=== PATIENT | female | born 1955 | race Caucasian/White ===

== ENCOUNTER 2023-07-10 12:25 | Day surgery (SDC) | payer MEDICARE, OTHER, SELFPAY ==
[2023-07-05 10:54] VITALS: BMI 35.6
--- NOTE | 2023-07-10 | PATH_ITS ---
[facility] Accession Number: [id number] No. of containers..01 Tissue . 01 Material submitted: . uterus - UTERINE MASS . 01 Diagnosis: Endometrium, Curettage: Endometrial polyp fragments. Negative for atypical hyperplasia and malignancy. MRV 07/18/2023 1626 Local . 01 Electronically signed: . Jenna Escobar MD, Pathologist NPI- [id number] . 01 Gross description: . UTERINE MASS: Received in formalin are multiple fragment of joyce soft tissue measuring 5.0 x 5.0 x 0.5 cm in aggregate. Specimen is submitted in its entirety in 4 cassettes. /CHENG 07/11/2023 1944 Local . 01 Pathologist provided ICD-10: N84.0 . 01 CPT . 487365 Specimen Comment: A courtesy copy of this report has been sent to [facility] Pathology Performed at: 01 [facility] [address] [place] [address], [place], [place] [id number] MD Roque Duran MD Phone: [phone]
[2023-07-10] MEDS: LACTATED RINGERS 1,000 ML 42 ML IV (12:44)
[2023-07-10 13:05] VITALS: BP 131/82; PULSE 88; RESP 17; TEMP 37.1; O2SAT 97; BMI 35.6
--- NOTE | 2023-07-10 13:21 | PM.PREOP ---
Pre-operative Note Interval Note History & Physical reviewed/Exam performed by Physician: Yes Changes to H&P: No H&P completed within 30 days and has changed as indicated here:: see office note 07/03/23 No changes to her medical/surgical history, no new medications. Plan to proceed with diagnostic hysteroscopy, possible polypectomy, possible dilation and curettage.
[2023-07-10] MEDS: ACETAMINOPHEN IV 1,000 MG/100 ML VIAL 400 MG IV (14:01)
--- NOTE | 2023-07-10 14:08 | SUR.OPER ---
Lithotomy on padded OR bed, head on pillow, arms secured on padded arm boards at <90 degrees abduction. Legs secured in padded yellow fins stirrups.
[2023-07-10] MEDS: LIDOCAINE 1% 20 ML INJ (14:12)
[2023-07-10 14:39] VITALS: BP 114/62; PULSE 81; RESP 17; TEMP 36.6; O2SAT 94
[2023-07-10 14:45] VITALS: BP 119/61; PULSE 83; RESP 10; O2SAT 97
[2023-07-10 14:49] VITALS: BP 116/55; PULSE 81; RESP 11; O2SAT 99
[2023-07-10] MEDS: OXYCODONE IR 5 MG TABLET PO (14:52)
--- NOTE | 2023-07-10 14:52 | P.OP_ITS ---
Operative Date/Time/Diagnoses Date of procedure: 07/10/23 Time of procedure: 13:30 Pre-op diagnosis: Postmenopausal bleeding Post-op diagnosis: other (Endometrial mass) Procedure & Clinicians Procedure: Diagnostic hysteroscopy Hysteroscopic myomectomy Same procedure as scheduled: Yes Indications: Postmenopausal bleeding Surgeon: Laurel Maloney Click Yes if Unassisted: Yes Anesthesia Type: General Operative Notes Findings: Large pedunculated intrauterine mass with polypoid and fibrous features Specimen(s): other (uterine mass) Estimated Blood Loss (mL): 10 Blood products transfused: none Procedure in detail: The risks, benefits, indications and alternatives of the procedure were reviewed with the patient and informed consent was obtained. The pt was taken to the operating room where general anesthesia with LMA was obtained without difficulty. The pt was then placed in the low lithotomy position using gel- padded Roger stirrups. Sequential compression devices were placed bilaterally for VTE prophylaxis. The pt was then prepped and draped in the sterile fashion. A sterile speculum was placed in the patient?s vagina and the cervix was visualized. A single tooth tenaculum was used to grasp the anterior lip of the cervix. A paracervical block was then performed using appoximately 10cc of 1% Lidocaine without epinephrine. The operative hysteroscope was first primed and pressure set. The operative hysteroscope was then advanced through the endocervical canal under direct visualization. The uterus was distended with warm saline, and the above findings were noted. Decision was made to proceed with the Myosure reach for removal of what appeared to be a polyp. After several minutes of resection however, the mass was noted to be more fibrous in nature, thus decision was made to switch to the Myosure XL. The pedunculated mass was then resected, and normal endometrial anatomy was restored. The operative hysteroscope was then removed under direct visualization. Tissue obtained was sent to pathology for review. The single tooth tenaculum was removed from the anterior lip of the cervix. The tenaculum site was noted to be hemostatic after direct pressure was applied. All instruments were then removed from the patient?s vagina. Hysteroscopic fluid deficit was 645cc of normal saline. The patient tolerated the procedure well. At the completion of the case the sponge and needle counts were correct x 2. The patient was taken to the PACU in stable condition. Complications: none Post-operative Condition: stable Disposition: PACU Plan for aftercare: Discharge to home once patient is meeting all discharge criteria.
[2023-07-10 14:53] VITALS: BP 126/69; PULSE 85; RESP 16; O2SAT 97
[2023-07-10 14:59] VITALS: BP 125/65; PULSE 80; RESP 15; TEMP 36.3; O2SAT 97
== END 2023-07-10 15:23 | disposition home or self-care (01) ==
PROVIDERS: PCP Internal Medicine; Referring Provider Student in an Organized Health Care Education/Training Program; Visit Provider Student in an Organized Health Care Education/Training Program
PROC: 0UDB8ZZ Extraction of Endometrium, Via Natural or Artificial Opening Endoscopic (ICD-10-PCS; CPT 58558; principal; 2023-07-10 13:30)
DX: N84.0 Polyp of corpus uteri (principal); N95.0 Postmenopausal bleeding
CPT/HCPCS: 58558; J0131; J1100; J1885; J2250; J2405; J2704; J3010

== ENCOUNTER → 2025-07-12 16:01 | Outpatient (CLI) | payer MEDICARE, OTHER, SELFPAY ==
--- NOTE | 2025-07-12 16:03 | DI.RAD.S_ITS ---
PROCEDURE: XR FOOT RT MIN 3V INDICATIONS: fell 1 week ago, pain top of foot TECHNIQUE: 3 views of the foot were acquired. COMPARISON: None. FINDINGS: Bones: 8 mm calcified fragment along the dorsal aspect of the talus only seen on the oblique view. Soft tissues: No tibiotalar joint effusion. Achilles tendon appears normal. IMPRESSION: Osseous fragments along the distal talus with unclear donor site. Recommend CT Dictated by: David Cheek M.D. on 07/12/2025 at 16:05 Approved by: David Cheek M.D. on 07/12/2025 at 16:12
== END ==
PROVIDERS: PCP Internal Medicine; Referring Provider Physician Assistant; Visit Provider Physician Assistant
DX: S99.921A Unspecified injury of right foot, initial encounter (principal); W19.XXXA Unspecified fall, initial encounter
CPT/HCPCS: 73630

== ENCOUNTER → 2025-07-14 14:16 | Outpatient (CLI) | payer MEDICARE, OTHER, SELFPAY ==
--- NOTE | 2025-07-14 14:19 | DI.CT.S_ITS ---
PROCEDURE: CT FOOT RIGHT WITHOUT CON INDICATIONS: abnormal xray TECHNIQUE: Noncontrast 1-1.5 mm axial sections acquired from above the tibiotalar joint to the bottom of the calcaneus, with coronal and sagittal reformats. Dose reduction techniques were utilized. COMPARISON: [facility], , XR FOOT RT MIN 3V, 07/12/2025, 16:06. FINDINGS: Acute comminuted fracture of the anterior process of the calcaneus. Acute dorsal avulsion fracture of the talar neck. Acute tiny avulsion type fracture of the dorsal aspect of the 2nd metatarsal base. Acute tiny avulsion fractures at the bases of the 4th middle phalanx and 3rd middle phalanx. Normal joint alignment. 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 Plantar calcaneal spurring. No effusion. Tendons are unremarkable by CT. Mild diffuse subcutaneous edema. IMPRESSION: Acute fractures of the talus, 2nd metatarsal base, calcaneus, 3rd and 4th middle phalanges. Dictated by: Ayaz Campos M.D. on 07/14/2025 at 15:06 Approved by: Ayaz Campos M.D. on 07/14/2025 at 15:11
== END ==
PROVIDERS: PCP Internal Medicine; Referring Provider Physician Assistant; Visit Provider Physician Assistant
DX: S92.021A Displaced fracture of anterior process of right calcaneus, initial encounter for closed fracture (principal); S92.111A Displaced fracture of neck of right talus, initial encounter for closed fracture; S92.521A Displaced fracture of middle phalanx of right lesser toe(s), initial encounter for closed fracture; M19.071 Primary osteoarthritis, right ankle and foot; M77.31 Calcaneal spur, right foot; R60.0 Localized edema; X58.XXXA Exposure to other specified factors, initial encounter
CPT/HCPCS: 73700